=== PATIENT | female | born 1975 | race Caucasian/White ===

== ENCOUNTER 2017-08-30 19:21 | Emergency (ER) | payer OTHER ==
[~2017-08-30] VITALS: Ht 157.5 cm; Wt 78.5 kg
[2017-08-30] MEDS ORDERED: [UNRECOGNIZED DRUG - OTHER] (19:34)
[2017-08-30] MEDS ORDERED: HYZAAR 100-12.1 EACH (19:34)
[2017-08-30] MEDS ORDERED: ZOCOR5 MG (19:35)
[2017-08-30] MEDS ORDERED: TESSALON PERLE100 M1 (19:35)
[2017-08-30] MEDS ORDERED: ZITHROMAX500 MG (19:35)
== END 2017-08-30 21:37 | disposition home or self-care (01) ==
LOC: ER 19:21
DX: S90.31XA Contusion of right foot, initial encounter (principal); W22.8XXA Striking against or struck by other objects, initial encounter; Y93.01 Activity, walking, marching and hiking; Y92.89 Other specified places as the place of occurrence of the external cause; Y99.8 Other external cause status